=== PATIENT | female | born 1955 | race Caucasian/White ===

== ENCOUNTER 2016-10-26 10:10 | Outpatient (CLI) | payer OTHER ==
[~2016-10-26 10:10] MED LIST: ATIVAN1 MG PO; ATORVASTATIN CA40 MG PO; AZATHIOPRINE50 MG PO; AZULFIDINE500 MG PO; CALCIUM CARBON500 MG PO; CHLORTHALIDONE25 MG PO; CRESTOR20 MG PO; CYCLOBENZAPRINE10 MG PO; DICLOFENAC SODI75 MG PO; DITROPAN EQUIVAL5 MG PO; FOSAMAX70 MG PO; GLUCOSAMINE500 M1; HCTZ/TRIAMTEREN1 TA1 PO; HYCET1 ML PO; KLOR-CON 1010 MEQ PO; LISINOPRIL20 MG PO; METOPROLOL SUCC50 MG PO; MULTIPLE VITAMIN PO; NEURONTIN300 MG PO; TIZANIDINE HCL4 MG; VICODIN EQUIVAL1 TAB PO
--- NOTE | 2016-10-26 14:32 | DIAGNOSTIC IMAGING REPORT ---
PROCEDURE: MG BILATERAL SCREENING W/CAD INDICATION: Screening. Family history breast carcinoma (cousin). TECHNIQUE: Bilateral CC and MLO digital views. COMPARISON: Compared to 01/30/2015 and 09/26/2013. FINDINGS: Computer-aided detection applied. Mildly dense with a few dystrophic calcifications. No change. IMPRESSION: 1. Negative mammogram. RESULT CODE: 1- Negative. A. A negative report should not delay biopsy if a dominant or clinically suspicious mass is present. 10-15% of cancers are not identified by x-ray. B. A negative report may reinforce clinical impression. C. Adenosis and dense breasts may obscure an underlying neoplasm. D. False positive reports average 6-10%. E.. A yearly screening mammogram is recommended. A reminder letter will be scheduled.
== END 2016-10-26 23:00 ==
LOC: MAM SRH 10:10
DX: Z12.31 Encounter for screening mammogram for malignant neoplasm of breast (principal)